=== PATIENT | male | born 1995 | race Caucasian/White ===

== ENCOUNTER 2018-05-29 23:46 | Emergency (ER) | payer OTHER ==
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
[2018-05-30] MEDS ORDERED: APAP/HYDROCODONE 325/5 TAB PO ONE ×2 (00:05→00:45)
[2018-05-30] MEDS ORDERED: IBUPROFEN 600 MG TAB PO ONE (00:05)
[2018-05-30] MEDS ORDERED: BACITRACIN OINT 15 GM TUBE TP ONE (00:05)
[2018-05-30] MEDS ORDERED: ONDANSETRON 4 MG/2 ML VIAL IVP ONE (00:15)
[2018-05-30] MEDS ORDERED: KETOROLAC 30 MG/ML VIAL IVP ONE (00:15)
[2018-05-30] MEDS ORDERED: ACET/HYDROC 5/325MG TH ER ONLY 2 TAB/BOTTLE PO ONE (00:40)
[2018-05-30 00:53] VITALS: BP 113/84
== END 2018-05-30 00:53 | disposition home or self-care (01) ==
LOC: ER 05-30 00:01
DX: T23.031A Burn of unspecified degree of multiple right fingers (nail), not including thumb, initial encounter (principal); X10.2XXA Contact with fats and cooking oils, initial encounter
CPT/HCPCS: 99283

== ENCOUNTER 2018-05-30 16:07 | Emergency (ER) | payer OTHER ==
[2018-05-30 16:11] VITALS: BP 114/60
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
[2018-05-30] MEDS ORDERED: DIPHTH/TETANUS/ACEL. PERTUSSIS IM ONLY ONE (16:50)
== END 2018-05-30 17:29 | disposition home or self-care (01) ==
LOC: ER 16:15
DX: Z48.00 Encounter for change or removal of nonsurgical wound dressing (principal); T23.031A Burn of unspecified degree of multiple right fingers (nail), not including thumb, initial encounter
CPT/HCPCS: 90471; 90715; 99283

== ENCOUNTER 2018-05-31 15:00 | Emergency (ER) | payer OTHER ==
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
[2018-05-31 16:49] VITALS: BP 105/53
== END 2018-05-31 16:49 | disposition home or self-care (01) ==
LOC: ER 15:29
DX: Z48.00 Encounter for change or removal of nonsurgical wound dressing (principal); T23.031A Burn of unspecified degree of multiple right fingers (nail), not including thumb, initial encounter
CPT/HCPCS: 16020; 99283

== ENCOUNTER 2018-06-01 10:49 | Emergency (ER) | payer OTHER ==
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
[2018-06-01 11:07] VITALS: BP 142/72
== END 2018-06-01 11:21 | disposition home or self-care (01) ==
LOC: ER 11:15
DX: Z48.00 Encounter for change or removal of nonsurgical wound dressing (principal); T23.031A Burn of unspecified degree of multiple right fingers (nail), not including thumb, initial encounter
CPT/HCPCS: 99281

== ENCOUNTER 2018-08-03 19:48 | Emergency (ER) | payer OTHER ==
[2018-08-03 20:43] VITALS: BP 124/71
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
--- NOTE | 2018-08-03 21:32 | RADIOLOGY IMAGING REPORT ---
[place] [facility] [place] Elijah Lara : 1995 MR: [id number] V: [id number] EXAM DATE: ORDERING PHYSICIAN: ROSALES VALENTE TECHNOLOGIST: [place] [facility] [place] Patient: Elijah Lara : 1995 Visit/Account:[id number] Date of Sevice: 08/03/2018 EXAMINATION: Right fifth finger radiographs 3 views HISTORY: Laceration of right fifth finger. COMPARISON: None. FINDINGS: PA, lateral and oblique views of the right fifth finger are obtained. Bones: Negative. Joint spaces: Negative. Hardware: None. Alignment: Normal. Soft tissues: Soft tissue swelling of the proximal fifth finger. No radiodense foreign body is ident ified. IMPRESSION: Soft tissue swelling of the proximal right fifth finger. No radiodense foreign body is identified. Report Dictated By: Manny Pope MD at 08/03/2018 9:27 PM Report E-Signed By: Manny Pope MD at 08/03/2018 9:28 PM WSN:[id number]
== END 2018-08-03 22:00 | disposition home or self-care (01) ==
LOC: ER 20:47
DX: S61.216A Laceration without foreign body of right little finger without damage to nail, initial encounter (principal); W25.XXXA Contact with sharp glass, initial encounter
CPT/HCPCS: 99283